=== PATIENT | female | born 2000 | race Hispanic/Latino ===

== ENCOUNTER 2020-10-23 21:40 | Emergency (ER) | payer SELFPAY ==
[~2020-10-23] VITALS: Ht 165.1 cm; Wt 45.4 kg
[2020-10-24] MEDS ORDERED: KETOROLAC TROMETHAMINE 30 MG/ML VIAL IM STA (00:40)
== END 2020-10-24 01:06 | disposition home or self-care (01) ==
LOC: FSED 22:12
DX: O20.9 Hemorrhage in early pregnancy, unspecified (principal); O20.0 Threatened abortion
CPT/HCPCS: 76801; 99283